=== PATIENT | male | born 1965 ===

== ENCOUNTER 2020-04-29 19:40 | Inpatient (IN) | payer OTHER ==
[2020-04-29] MEDS ORDERED: traMADol HCl 50 MG TAB PO PRN ×2 (20:34)
[2020-04-29] MEDS ORDERED: Mag-Al 1200 mg/1200 mg/30 ML UDCUP PO PRN (20:34)
[2020-04-29] MEDS ORDERED: Milk Of Magnesia 30 ML UDCUP PO PRN (20:34)
[2020-04-29] MEDS ORDERED: Promethazine 25 MG TAB PO PRN (20:34)
[2020-04-29] MEDS ORDERED: Morphine 2 MG/ML SYRINGE SLOW IVP PRN (20:34)
[2020-04-29] MEDS ORDERED: Ondansetron PF 4 MG/2 ML Vial IVP PRN (20:34)
[2020-04-29] MEDS ORDERED: Acetaminophen/Codeine 30-300mg Tablet PO PRN (20:34)
[2020-04-29] MEDS ORDERED: diphenhydrAMINE 50 MG/ML VIAL IVP PRN (20:34)
[2020-04-29] MEDS ORDERED: hydrALAZINE 20 MG/ML VIAL SLOW IVP PRN (20:43)
[2020-04-29] MEDS ORDERED: Labetalol HCl 100 MG/20 ML VIAL SLOW IVP PRN (20:44)
[2020-04-29 21:43] LABS: Hemoglobin 15.5 g/dL (14.0-18.0); Mean Corpuscular HGB CONC 32.9 g/dL (32.0-36.0); Mean Corpuscular Hemoglobin 32.8 pg (27.0-31.0); Mean Corpuscular Volume 99.5 fL (78.0-98.0); Mean Platelet Volume 9.7 fL (7.4-10.4); Platelet Count 300 thou/uL (130-400); RBC Distribution Width 12.4 % (11.5-14.5); Red Blood Cell (RBC) Count 4.73 mill/uL (4.70-6.10); White Blood Cell (WBC) Count 15.8 thou/uL (4.8-10.8)
[2020-04-29 21:48] LABS: INR-International Normal Ratio 0.9; Prothrombin Time 12.5 sec (12.0-14.7)
[2020-04-29 21:49] VITALS: BMI 23.6
[2020-04-29 21:49] LABS: PTT 38.6 sec (22.9-36.1)
[2020-04-29 21:57] LABS: Band 3 % (5-11); Lymphocytes 8 % (21-51); MDiff Complete? YES; Neutrophil 89 % (42-75)
[2020-04-29 21:58] LABS: Anion Gap 14 mmol/L (10-20); BUN (Urea Nitrogen) 13 mg/dL (8.4-25.7); Calc. Creatinine Clearance 100 mL/min (70-130); Calcium 9.3 mg/dL (7.8-10.44); Carbon Dioxide 22 mmol/L (22-29); Chloride 105 mmol/L (98-107); Estimated GFR-MDRD 88; Glucose 160 mg/dL (70-105); Potassium 4.3 mmol/L (3.5-5.1); Sodium 137 mmol/L (136-145)
[2020-04-29] MEDS ORDERED: Pregabalin 50 MG CAP PO SCH (22:30)
--- NOTE | 2020-04-29 22:40 | HP ---
HISTORY OF PRESENT ILLNESS: The patient is a 55-year-old male with past medical history of hypertension, who presented to the [facility] ER today for progressive neck pain, arm dysesthesias as well as weakness of the upper and lower extremities, and difficulty walking. The patient reports that he awoke with neck pain in the middle of the night in December of 2019. He reports this became progressively worse and he followed up with a chiropractor the following week. He had an adjustment and after that developed gradual worsening dysesthesias in the arms and legs, as well as weakness and difficulty walking. He followed up with a neurosurgeon in the [place], where an MRI was done. He was told he had a cervical herniated disk and would require surgery. Unfortunately, the patient is unfunded and has had difficulty getting his surgery done. He presented to the ER today for significant worsening in his neurologic status and now requirement of a wheelchair. His MRI was repeated today, which showed a very large C4-C5 disk herniation with severe cord compression as well as T2 signal cord changes. He is also having some urgency of bowel and bladder and an MRI of the lumbar spine was obtained as well. This shows very minimal nerve compression, only mild degenerative changes throughout. PAST MEDICAL HISTORY: hypertension. PAST SURGICAL HISTORY: Orthopedic surgeries on bilateral shoulders. FAMILY HISTORY: Noncontributory. 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 He does not smoke, drink, or use any drugs. ALLERGIES: HE HAS NO KNOWN DRUG ALLERGIES. CURRENT MEDICATION: 1. Lyrica 50 mg tab one tab p.o. b.i.d. 2. Lisinopril 20 mg tab one tab p.o. daily. 3. Hydrocodone 5-325 mg tab p.r.n. REVIEW OF SYSTEMS: Per HPI. PHYSICAL EXAMINATION: VITAL SIGNS: Stable. Blood pressure is 138/60. HEENT: Head, normocephalic and atraumatic. Eyes, PERRLA. Extraocular movements intact. ENT; oral mucosa is pink, intact, and moist. He has a normal voice. NECK: He is tender mildly over the posterior cervical spine and has some pain with range of motion of the neck. HEART: Regular rhythm and rate. PULMONARY: Symmetric chest expansion. No evidence of dyspnea. MUSCULOSKELETAL: He is able to move all extremities against gravity, however, is very weak with any resistance. EXTREMITIES: In the upper extremities, he is 3+/5 and in the lower extremities , he is 4-/5 throughout. He is hyperreflexive in both the upper and lower extremities with a positive Papo sign and positive clonus. NEUROLOGIC: A and O x4. Neurologic changes in the extremities as noted in the musculoskeletal exam. ASSESSMENT AND PLAN: The patient has a very large C4-C5 disk herniation with symptoms of progressive cervical myelopathy. There severe cord compression at this level with T2 signal changes on the MRI. Dr. Cole agrees this will require emergent surgical intervention for neurologic preservation with anterior and posterior decompression and fusion at C4-C5. We will transfer the patient to [facility] where he will be made n.p.o. at midnight in plans for surgery tomorrow. Job ID: [id number] [facility]
[2020-04-29] MEDS: Dexamethasone 4 mg/ml Vial SLOW IVP SCH (22:41)
[2020-04-29] MEDS: Sodium Chloride 0.9% 1,000 ML IV SCH (22:41)
[2020-04-30] MEDS: Acetaminophen/Codeine 30-300mg Tablet PO PRN ×3 (01:54→19:58)
[2020-04-30] MEDS: Dexamethasone 4 mg/ml Vial SLOW IVP SCH ×4 (05:15→23:55)
--- NOTE | 2020-04-30 07:42 | PRG ---
DATE OF SERVICE: 04/30/2020 SUBJECTIVE: The patient was seen and examined. I agree with Aracelis Diallo's note, 04/29/2020. 30 minutes was spent in [id number] visit at the bedside reviewing films and chart. The patient is a 55-year-old man, who has had progressive deterioration with hand function and with walking and now with some bladder urgency. He has been evaluated by Neurosurgery in [place] and found to have significant spinal cord compression. Surgery was planned, but never executed. Reported to the ER last night and unable to walk due to his progressive deterioration. His exam reveals diffuse myelopathy with very poor gait and significant myelopathic hand function. The motor function in his hands is quite limited. MRI of the cervical spine reveals profound cervical cord compression and T2 signal within the cord at the C4-5 level due to combination of herniated disk and facet arthropathy. IMPRESSION AND PLAN: The patient will need urgent surgical decompression. We discussed the indications, risks, benefits, and alternatives of a C4-5 anterior cervical diskectomy and fusion and a posterior C4-5 decompression and fusion. I particularly discussed the potential risk of paralysis with surgery, which is elevated and he understands this. All his questions were answered and he wished to proceed. Job ID: [id number]
[2020-04-30] MEDS: Lisinopril 20 MG TAB PO SCH (09:04)
[2020-04-30] MEDS: Pregabalin 50 MG CAP PO SCH ×2 (09:05→21:46)
[2020-04-30] MEDS ORDERED: Rocuronium Bromide 10 MG/ML (10ML VIAL) ONE (11:02)
[2020-04-30] MEDS ORDERED: Ketorolac Tromethamine 30 MG/ML VIAL ONE (11:02)
[2020-04-30] MEDS ORDERED: PROPOFOL 200 MG/20 ML VIAL ONE (11:02)
[2020-04-30] MEDS ORDERED: Lidocaine 1% PF 5 ML VIAL ONE (11:02)
[2020-04-30] MEDS ORDERED: Ondansetron PF 4 MG/2 ML Vial ONE (11:02)
[2020-04-30] MEDS ORDERED: EPHEDRINE 25 MG/5 ML SYRINGE ONE (11:02)
[2020-04-30] MEDS ORDERED: PHENYLEPHRINE-NS 100 MCG/ML 10 ML SYRINGE ONE (11:02)
[2020-04-30] MEDS ORDERED: Dexamethasone 20 MG/5 ML VIAL ONE (11:02)
[2020-04-30] MEDS: Sodium Chloride 0.9% 1,000 ML IV SCH (11:20)
[2020-04-30] MEDS ORDERED: Bacitracin Zinc Ointment 30 gm TUBE ONE (11:45)
[2020-04-30] MEDS ORDERED: Fentanyl 100 MCG/2 ML VIAL ONE ×2 (11:54→13:22)
[2020-04-30] MEDS ORDERED: Midazolam HCl 2 mg/2 ml Vial ONE (11:54)
[2020-04-30] MEDS ORDERED: Famotidine/PF 20 mg/2ml Vial ONE (11:55)
[2020-04-30] MEDS ORDERED: Promethazine HCl 25 MG/ML VIAL IM PRN (12:07)
[2020-04-30] MEDS ORDERED: PACU-Morphine 4MG/ML VIAL SLOW IVP PRN (12:07)
[2020-04-30] MEDS ORDERED: Promethazine HCl 25 MG/ML VIAL SLOW IVP PRN (12:07)
[2020-04-30] MEDS ORDERED: Meperidine HCl/PF 25 MG/ML VIAL SLOW IVP PRN (12:07)
[2020-04-30] MEDS ORDERED: SUGAMMADEX SODIUM 200 MG/2 ML VIAL ONE (14:22)
[2020-04-30] MEDS ORDERED: HYDROmorphone 2 MG/ML VIAL ONE (14:59)
--- NOTE | 2020-04-30 15:15 | OP ---
DATE OF PROCEDURE: 04/30/2020 SAMPLE TESTER GRINDER: Aracelis Diallo PA-C PROCEDURES PERFORMED: Anterior cervical diskectomy, C4-C5, interbody arthrodesis, intervertebral biomechanical device, local morselized autograft, demineralized bone matrix, anterior titanium instrumentation, C4-C5; posterior approach C4-C5 laminectomy, posterolateral arthrodesis, lateral mass screw instrumentation, demineralized bone matrix, local morselized autograft, C4-C5. DESCRIPTION OF PROCEDURE: The patient was brought into the operating room and he was positioned supine with the head in modest extension on a gel-filled donut. An incision was made in the right precervical area and dissected medial to the sternocleidomastoid muscle. We identified the anterior cervical spinal, and the level was confirmed by x-ray. We placed distraction across C4-C5, debrided the intervertebral disk and using operative microscope and microdissection techniques, completely decompressed the intervertebral disk and a large herniation was found centrally compressing the spinal cord, which was removed. A complete decompression was achieved. The bony endplates were then decorticated for the purpose of arthrodesis and appropriate-sized intervertebral biomechanical PEEK device was brought in the field. It was filled with demineralized bone matrix and local morselized autograft, and tapped in place securely at C4-C5. Next, an anterior plate was brought into the field and secured to C4 and C5 using two 14-mm screws at each level. The wound was then extensively irrigated and MAC hemostasis was secured. The wound was closed in anatomic layers. The patient was then rolled in a prone position on gel-filled chest rolls with the head fixed in a [employer] custod[employer] in neutral position. A midline posterior cervical incision was made exposing C3 through C6 and the level was confirmed by x-ray. We performed complete C5 incomplete C4 laminectomies, completely decompressing the spinal cord. We then placed lateral mass screws at C4 and C5 on the right using lateral fluoroscopic guidance. The darnell was secured between the screws, connected by nuts, which were final tightened. The wound was then extensively irrigated and MAC hemostasis was secured. A combination of demineralized bone matrix and local morselized autograft was laid over the left lamina on posterolateral surfaces for the purpose of arthrodesis. Vancomycin powder was applied and the wound was then closed in anatomic layers. Job ID: [id number]
[2020-04-30] MEDS ORDERED: HYDROmorphone 0.5 MG/0.5 ML SYRINGE ONE ×2 (15:24→15:35)
[2020-04-30] MEDS: tiZANidine HCl 4 MG TAB PO PRN (17:27)
[2020-05-01] MEDS: Sodium Chloride 0.9% 1,000 ML IV SCH (01:13)
[2020-05-01] MEDS: Acetaminophen/Codeine 30-300mg Tablet PO PRN ×3 (01:15→08:21)
[2020-05-01] MEDS: Dexamethasone 4 mg/ml Vial SLOW IVP SCH (05:13)
[2020-05-01 08:11] VITALS: BP 152/90; TEMP 97.4
[2020-05-01] MEDS: Pregabalin 50 MG CAP PO SCH (08:19)
[2020-05-01] MEDS: Lisinopril 20 MG TAB PO SCH (08:20)
[2020-05-01] MEDS: tiZANidine HCl 4 MG TAB PO PRN (08:21)
--- NOTE | 2020-05-01 16:18 | DIS ---
DATE OF ADMISSION: 04/29/2020 DATE OF DISCHARGE: 05/01/2020 HOSPITAL COURSE: The patient is a 55-year-old male recently evaluated in the ER for progressive cervical spine myelopathy and found to have significant C4-C5 stenosis. The patient underwent C4-C5 anterior and posterior decompression and fusion on 04/30/2020. Following the surgery, he was transitioned to the Med/Surg floor, where his pain has been well controlled with p.o. medications, he is tolerating a regular diet, and he is voiding appropriately. He ambulated a short distance in his room with his walker without any difficulty. PHYSICAL EXAMINATION: On exam this morning, he is awake, alert, in no acute distress. He has free active range of motion of all extremities. He is still weak in the upper and lower extremities, but this seemed to be somewhat improved prior to surgery. He reports his sensation is also improving some. ASSESSMENT AND PLAN: Overall, the patient is improving, although I believe that this will continue to take time. We will plan to dismiss to home. I have discussed home care and precautions. We will follow up with the patient in 2 weeks. He has been provided with prescriptions for Tylenol No. 3, Zanaflex, and Keflex. Job ID: [id number]
== END 2020-05-01 11:24 | disposition home or self-care (01) | DRG 454 ==
LOC: SURG B 19:42 → OBSVTOIN 19:42
PROVIDERS: ADMIT Neurological Surgery; ATTEND Neurological Surgery
PROC: 0RG10A0 Fusion of Cervical Vertebral Joint with Interbody Fusion Device, Anterior Approach, Anterior Column, Open Approach (ICD-10-PCS; principal; 2020-04-29)
PROC: 0RG1071 Fusion of Cervical Vertebral Joint with Autologous Tissue Substitute, Posterior Approach, Posterior Column, Open Approach (ICD-10-PCS; 2020-04-29)
PROC: 0RB30ZZ Excision of Cervical Vertebral Disc, Open Approach (ICD-10-PCS; 2020-04-29)
PROC: 00NW0ZZ Release Cervical Spinal Cord, Open Approach (ICD-10-PCS; 2020-04-29)
DX: M48.02 Spinal stenosis, cervical region (principal); M50.021 Cervical disc disorder at C4-C5 level with myelopathy; M51.04 Intervertebral disc disorders with myelopathy, thoracic region; Z11.59 Encounter for screening for other viral diseases; I10 Essential (primary) hypertension; F17.210 Nicotine dependence, cigarettes, uncomplicated; Z79.899 Other long term (current) drug therapy
CPT/HCPCS: 36415; 76000; 80048; 85025; 85610; 85730; 87635; C1713; C1768; C1776; J0690; J1100; J1170; J1885; J2001; J2250; J2405; J2704; J3010; J3370; S0028; U0003

== ENCOUNTER 2020-05-19 09:23 | Outpatient (CLI) | payer OTHER ==
--- NOTE | 2020-05-19 10:01 | RAD ---
CERVICAL SPINE 3 VIEWS: HISTORY: Postop followup. FINDINGS: Postop findings are noted. There are posterior skin hilaria. Anterior plate and screws transfix C4- 5 with interbody implant. There are posterior pedicle screws and rods on the right at this level. Vertebral bodies maintain height. Alignment is maintained. There is spondylosis noted at the C5-6 a nd C6-7 levels with loss of disk space at both of these levels. Anterior spurring is present at thes e levels. IMPRESSION: Postoperative changes at C4-5. Degenerative changes at C5-6 and C6-7. POS: AH
== END 2020-05-19 09:24 | disposition home or self-care (01) ==
LOC: TBSIIMAG 09:23
PROVIDERS: ATTEND Physician Assistant
DX: M54.2 Cervicalgia (principal); M47.812 Spondylosis without myelopathy or radiculopathy, cervical region; Z98.890 Other specified postprocedural states
CPT/HCPCS: 72040